=== PATIENT | male | born 1950 | race Caucasian/White ===

== ENCOUNTER → 2019-02-01 | Day surgery (SDC) | payer OTHER ==
[~2019-02-01] VITALS: Ht 180.3 cm; Wt 108.9 kg
[~2019-02-01] MED LIST: ASPIR 8181 MG PO; CENTRUM SILVER1 EAC2 PO; DICLOFENAC SODI75 MG PO; FISH OIL 1,4001 EACH PO; SYNTHROID50 MCG PO; TIMOLOL GL0.5 %/5 M1 OPHTHALMIC; VITAMIN D31000 UNIT PO; XALATAN2.5 ML OPHTHALMIC
--- NOTE | ~2019-02-01 | O ---
[facility] [place] [address] OPERATIVE REPORT Name: ALICIA CHAVEZ Room #: REG [facility].#: [id number] Admission: 02/01/19 Attend Phys: Panfilo Call DPM Discharge: Date of : 46 Report #: [id number] THIS REPORT FOR: //name// CC: Panfilo Elizalde DATE OF SERVICE: 02/01/2019 SURGEON: Panfilo Call DPM LAYBOY OPERATOR: Jonas Duran DPM ANESTHESIA: General LMA. 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 PROCEDURE: 1. Modified Brostrom repair, right anterior talofibular ligament with Arthrex internal brace and ____ bone anchors. 2. Synovectomy with arthroplasty, right anterolateral ankle joint margin. INJECTABLES: A 20 mL of 0.5% Marcaine plain. SUTURES: 2-0 Vicryl, 3-0 Vicryl, 3-0 nylon. HARDWARE: 1. Arthrex internal brace (FiberTape). 2. Arthrex ____ bone anchor x 2. ESTIMATED BLOOD LOSS: Minimal. COMPLICATIONS: None. DESCRIPTION OF PROCEDURE: The patient was brought to the OR and placed on the table supine with induction of general LMA anesthesia. A well-padded right thigh tourniquet was placed. A local anesthetic block was given to the right ankle proximal to the surgical site. The extremity was prepped and draped aseptically. An incision was created over the right distal fibula extending to the lateral talar body. Layered anatomic dissection was utilized with preservation of the lateral dorsal cutaneous and sural nerves. The extensor retinaculum was identified and transected and the tissue was reflected off the distal fibula and anterior lateral talus. The underlying ATF ligament was [address] [address] OPERATIVE REPORT Name: ALICIA CHAVEZ Tico Room #: REG [facility].#: [id number] Admission: 02/01/19 Attend Phys: Panfilo Call DPM Discharge: Date of : 46 Report #: [id number] thickened and scarred into the retinaculum with signs consistent with attenuation. There was a meniscoid type lesion to the lateral gutter and inferior fibular malleolus, which was debrided with rongeur and curette. I performed a synovectomy of the joint capsule in this region as well. At this point, the Arthrex internal brace was applied in standard fashion to the lateral talus and distal fibula using fluoroscopy. A guidewire was used for initial placement of the bone anchor into the lateral talus to ensure that no violation of the subtalar or ankle joints occurred. The bone anchor seated well into the lateral talus as well as the distal fibula. Two ____ bone anchors were also applied, one to the anterior medial and one to the anterior lateral aspect of the distal fibula. The ATF ligament was repaired in a Brostrom manner with the ____ bone anchors in standard fashion and then reinforced with 2-0 Vicryl in a [id number] manner. This was repair of the underlying ATF and retinaculum. Arthrex internal brace was then applied appropriately and tensioned with external rigid fixation, which was extracapsular and overlying the Brostrom repair. Electrocautery was used for intraoperative hemostasis and the wound was flushed with sterile saline. The ankle was checked under fluoroscopy for stability and the joint was in anatomic alignment without subluxation with no signs of talar instability. Subcutaneous tissues were closed with 3-0 Vicryl and a running intradermal stitch of 3-0 Vicryl was used. The skin was closed with 3-0 nylon and a running interlocking stitch. The foot was cleansed, dried and dressed with Betadine-soaked Adaptic, fluffs, ABDs and Kerlix gauze. He was placed in a sterile below-knee fiberglass posterior splint. Tourniquet was deflated prior to splint application with normal vascular return to the extremity. The patient left the OR with no pain or complications noted. By: [id number] Panfilo Call DPM /[email or web address]
[2019-02-01 11:52] LABS: HEMOGLOBIN 15.5 gm/dL (14.0-18.0)
[2019-02-01 14:04] VITALS: BP 163/92
[2019-02-01 16:43] VITALS: BP 163/92
== END | disposition home or self-care (01) ==
LOC: OR 10:57
PROVIDERS: Podiatrist Foot & Ankle Surgery
DX: M25.371 Other instability, right ankle (principal); M65.872 Other synovitis and tenosynovitis, left ankle and foot; H40.9 Unspecified glaucoma; E03.9 Hypothyroidism, unspecified; Z98.890 Other specified postprocedural states; Z79.899 Other long term (current) drug therapy
CPT/HCPCS: 50010; 50101; 50386; 55430; 56524; 56526; 56527; 56530; 57091; 57180; 62110; 62900; 70005